=== PATIENT | female | born 1975 | race Caucasian/White ===

== ENCOUNTER 2020-09-13 07:39 | Emergency (ER) | payer BC ==
[~2020-09-13] VITALS: Ht 154.9 cm; Wt 63.6 kg
[~2020-09-13 07:39] MED LIST: PENICILLIN V P500 MG PO
[2020-09-13 07:43] VITALS: BP 192/111; Ht 154.9 cm; Wt 63.6 kg
[2020-09-13 08:01] LABS: BASOPHILS 0.5 % (0-2); EOSINOPHILS 4.7 % (0-7); HEMATOCRIT 43.6 % (36.0-48.0); HEMOGLOBIN 14.7 g/dL (12-16); IMMATURE GRANULOCYTES 0.2 % (0-5); LYMPHOCYTE ABS# 2.27 10x3/uL (1.18-3.74); LYMPHOCYTES 27.5 % (15-50); MCH 30.4 pg (26.0-34.0); MCHC 33.7 g/dL (31.0-37.0); MCV 90.1 fL (80.0-100.0); MEAN PLATELET VOLUME 9.7 fL (7.4-10.4); NEUTROPHIL ABS# 4.94 10x3/uL (1.56-6.13); NEUTROPHILS 60.1 % (40-80); PLATELET COUNT 270 10x3/uL (130-400); RBC 4.84 10x6/uL (4.00-5.40); RDW 12.1 % (11.5-14.5); WBC 8.2 10x3/uL (4.8-10.8)
[2020-09-13 08:10] LABS: ANION GAP 12.3 mmol/L (8-16); CALCIUM 8.2 mg/dL (8.5-10.1); CARBON DIOXIDE 25.2 mmol/L (21.0-32.0); POTASSIUM - SERUM 3.5 mmol/L (3.5-5.1)
[2020-09-13 08:16] LABS: ALBUMIN 3.4 g/dL (3.4-5.0); BILIRUBIN - TOTAL 0.18 mg/dL (0.2-1.3); PROTEIN - SERUM 6.6 g/dL (6.4-8.2)
[2020-09-13] MEDS ORDERED: LOTREL 5-20 MG1 CAP PO (09:21)
== END 2020-09-13 09:31 | disposition home or self-care (01) ==
LOC: D.ER 07:39
PROVIDERS: Emergency Medicine
DX: I10 Essential (primary) hypertension (principal); R51.9 Headache, unspecified; Z72.0 Tobacco use; H53.8 Other visual disturbances